=== PATIENT | female | born 1975 | race Caucasian/White ===

== ENCOUNTER 2018-04-17 17:57 | Emergency (ER) | payer MEDICAID ==
[~2018-04-17] VITALS: Ht 162.6 cm; Wt 50.0 kg
[~2018-04-17 17:57] MED LIST: LEVO100C2
[2018-04-17 19:09] LABS: INTERNATIONAL NORMALIZED RATIO 0.97 (0.93-1.1)
[2018-04-17 19:10] LABS: MEAN CORPUSCULAR HGB CONC 34.3 g/dL (32.4-35.8); MEAN PLATELET VOLUME 8.1 fL (7.4-10.4); PLATELET COUNT 138 x10^3/uL (130-400); RED BLOOD COUNT 3.92 x10^6/uL (3.82-5.3); RED CELL DISTRIBUTION WIDTH 13.3 % (9.6-15.2)
[2018-04-17 19:12] LABS: ALBUMIN 3.5 g/dL (3.4-5.0); ANION GAP 9 mmol/L (5-15); CALCIUM 8.2 mg/dL (8.5-10.1); CHLORIDE 105 mmol/L (98-107)
[2018-04-17 19:16] VITALS: BP 112/73
[2018-04-17 19:17] LABS: ALANINE AMINOTRANSFERASE 42 U/L (12-78); ALKALINE PHOSPHATASE 105 U/L (45-117); BILIRUBIN,TOTAL 0.3 mg/dL (0.2-1.0); CREATININE 0.86 mg/dL (0.55-1.02); TOTAL PROTEIN 8.4 g/dL (6.4-8.2); TROPONIN I < 0.015 ng/mL (0.000-0.045)
[2018-04-17 19:24] LABS: MD YES
[2018-04-17 19:30] LABS: BASOS#(MANUAL) 0.05 x10^3/uL (0-0.1); BASOS% (MANUAL) 1 % (0-1); EOS#(MANUAL) 0.05 x10^3/uL (0.0-0.4); EOS% (MANUAL) 1 % (1-7); LYMPH#(MANUAL) 1.82 x10^3/uL (1-3.4); LYMPHS% (MANUAL) 35 % (22-44); MONOS#(MANUAL) 0.42 x10^3/uL (0.3-2.7); MONOS% (MANUAL) 8 % (2-9); SEG#(MANUAL) 2.86 x10^3/uL (1.8-6.8); SEGS% (MANUAL) 55 % (42-75)
[2018-04-17 19:32] LABS: <PLATELET ESTIMATE> ADEQUATE; <PLT MORPHOLOGY> NORMAL PLT MORPH
== END 2018-04-17 20:25 | disposition home or self-care (01) ==
LOC: ED 20:20
DX: F10.220 Alcohol dependence with intoxication, uncomplicated (principal); K29.20 Alcoholic gastritis without bleeding; J44.9 Chronic obstructive pulmonary disease, unspecified; F17.290 Nicotine dependence, other tobacco product, uncomplicated; Z71.41 Alcohol abuse counseling and surveillance of alcoholic; Z79.899 Other long term (current) drug therapy
CPT/HCPCS: 36415; 70450; 71045; 80053; 80307; 84484; 85025; 85610; 85730; 93005; 99285; 99406

== ENCOUNTER 2018-12-12 20:29 | Emergency (ER) | payer MEDICAID ==
[~2018-12-12] VITALS: Ht 162.6 cm; Wt 57.0 kg
--- NOTE | 2018-12-12 20:30 | NUR ---
BIB [facility]. C/O nausea. +EtOH. Patient combative and uncooperative with exam. 4mg IV zofran and 12.5mg IV phenergan admin by [facility]. Placed on NIBP and pulse ox. Will continue to monitor.
--- NOTE | 2018-12-12 20:30 | NUR ---
Patient reports new diagnosis of thyroid cancer 2 weeks ago.
--- NOTE | 2018-12-12 21:33 | NUR ---
Resting in [facility]. RR = 16. No needs.
--- NOTE | 2018-12-12 21:50 | NUR ---
Report to Gina RN
[2018-12-12 21:57] LABS: MEAN CORPUSCULAR HEMOGLOBIN 34.3 pg (27.0-34.8); MEAN CORPUSCULAR HGB CONC 33.2 g/dL (32.4-35.8); MEAN CORPUSCULAR VOLUME 103.4 fL (80-100); MEAN PLATELET VOLUME 7.8 fL (7.4-10.4); PLATELET COUNT 161 x10^3/uL (130-400); RED CELL DISTRIBUTION WIDTH 15.3 % (9.6-15.2)
[2018-12-12 21:58] LABS: MD YES
--- NOTE | 2018-12-12 21:59 | NUR ---
PT RESTING CALMLY IN BED WITH EYES CLOSED. PT ON VITALS AND MAINTENANCE PLUMBER.
[2018-12-12 22:03] LABS: ALBUMIN 3.1 g/dL (3.4-5.0); ANION GAP 9 mmol/L (5-15); CALCIUM 7.2 mg/dL (8.5-10.1); CHLORIDE 109 mmol/L (98-107)
[2018-12-12 22:07] LABS: ALANINE AMINOTRANSFERASE 31 U/L (12-78); ALKALINE PHOSPHATASE 76 U/L (45-117); BILIRUBIN,TOTAL 0.2 mg/dL (0.2-1.0); CREATININE 0.67 mg/dL (0.55-1.02); TOTAL PROTEIN 7.1 g/dL (6.4-8.2)
[2018-12-12 22:08] LABS: ANISOCYTOSIS 1+; BAND#(MANUAL) 0.05 x10^3/uL; BANDS%(MANUAL) 1 % (0-7); LYMPHS% (MANUAL) 23 % (22-44); MONOS#(MANUAL) 0.21 x10^3/uL (0.3-2.7); MONOS% (MANUAL) 4 % (2-9); SEG#(MANUAL) 3.74 x10^3/uL (1.8-6.8); SEGS% (MANUAL) 72 % (42-75)
[2018-12-12 22:09] LABS: <PLATELET ESTIMATE> ADEQUATE; <PLT MORPHOLOGY> NORMAL PLT MORPH
--- NOTE | 2018-12-12 22:22 | NUR ---
PT CONTNIUES TO REST CALMLY IN BED, NO STATED NEEDS AT THIS TIME.
--- NOTE | 2018-12-12 23:46 | NUR ---
PT UNABLE TO AMBULATE AT THIS TIME. WILL CONTINUE TO MONITOR.
[2018-12-12 23:56] VITALS: BP 129/83
--- NOTE | 2018-12-13 00:01 | NUR ---
PT UNABLE TO STAND FOR TECH. THIS RN WENT TO AMBULATE PT, PT KICKING AND THRASHING AROUND IN [facility], STATED "JUST LET ME SLEEP, THE LAST NURSE JUST LET ME SLEEP". PT VSS, SEE CHARTED. IV REMOVED. PT STATED, "IF YOU MAKE ME STAND UP, I'LL JUST FALL OVER". PT IS A&OX4, STRENGTH IS STRONG X 4 EXTREMITIES. PT IS ABLE TO STAND HERSELF UP. PT REFUSING TO LEAVE. SECURITY CALLED TO ESCORT PT TO DC.
== END 2018-12-13 00:07 | disposition home or self-care (01) ==
LOC: ED 23:59
DX: F10.129 Alcohol abuse with intoxication, unspecified (principal); Z98.890 Other specified postprocedural states; Z87.11 Personal history of peptic ulcer disease; Y90.9 Presence of alcohol in blood, level not specified
CPT/HCPCS: 36415; 80053; 80307; 85025; 99283

== ENCOUNTER 2018-12-13 03:31 | Emergency (ER) | payer MEDICAID ==
[~2018-12-13] VITALS: Ht 160 cm; Wt 46.8 kg
--- NOTE | 2018-12-13 03:48 | NUR ---
RHONDA HODGE FROM THE STREET; PT. WAS FOUND BY A BYSTANDER SLEEPING IN THE STREET. UNABLE TO AMBULATE. D/C FROM HERE EARLIER TODAY FOR SAME. UPON ARRIVAL PT. VOMITING ON THE FLOOR. EMESIS BAG PROVIDED. DIFFICULT ASSESSMENT PT. NOT ANSWERING QUESTIONS APPROPRITELY. DR. HU AT BS TO EVAL PT.
[2018-12-13] MEDS ORDERED: ONDANSETRON 2MG/ML, 2ML IVPush ONE (04:00)
[2018-12-13] MEDS ORDERED: ONDANSETRON ODT 8 MG PO STA (04:12)
[2018-12-13] MEDS ORDERED: ONDANSETRON ODT 8 MG ONE (04:12)
--- NOTE | 2018-12-13 04:14 | NUR ---
PT. MEDICATED PER SEP. PT. CURLED UP IN POSITION RIGHT SIDE LYING. CONTINUOUS PULSE OX AND B/P MONITORS IN PLACE.
[2018-12-13 04:20] LABS: MEAN CORPUSCULAR HEMOGLOBIN 33.3 pg (27.0-34.8); MEAN CORPUSCULAR HGB CONC 32.4 g/dL (32.4-35.8); MEAN CORPUSCULAR VOLUME 102.7 fL (80-100); MEAN PLATELET VOLUME 7.6 fL (7.4-10.4); PLATELET COUNT 180 x10^3/uL (130-400); RED BLOOD COUNT 3.81 x10^6/uL (3.82-5.3); RED CELL DISTRIBUTION WIDTH 15.6 % (9.6-15.2)
[2018-12-13 04:29] LABS: ALANINE AMINOTRANSFERASE 32 U/L (12-78); ALBUMIN 3.4 g/dL (3.4-5.0); ANION GAP 8 mmol/L (5-15); CALCIUM 7.6 mg/dL (8.5-10.1); CHLORIDE 108 mmol/L (98-107); CREATININE 0.65 mg/dL (0.55-1.02)
[2018-12-13 04:34] LABS: ALKALINE PHOSPHATASE 83 U/L (45-117); BILIRUBIN,TOTAL 0.3 mg/dL (0.2-1.0); TOTAL PROTEIN 7.6 g/dL (6.4-8.2)
--- NOTE | 2018-12-13 04:49 | NUR ---
PT. RESTING ON [place] PT. KEEPS STATING "OH FUCK!" WHEN ASKED WHAT IS WRONG SHE REPORTS BEING COLD. AN EXTRA WARM BLANKET PROVIDED TO PT.
[2018-12-13 04:50] LABS: MD YES
[2018-12-13 04:52] LABS: <PLATELET ESTIMATE> ADEQUATE; <PLT MORPHOLOGY> NORMAL PLT MORPH; ANISOCYTOSIS 1+; LYMPH#(MANUAL) 0.95 x10^3/uL (1-3.4); LYMPHS% (MANUAL) 19 % (22-44); MONOS#(MANUAL) 0.25 x10^3/uL (0.3-2.7); MONOS% (MANUAL) 5 % (2-9); SEGS% (MANUAL) 76 % (42-75)
--- NOTE | 2018-12-13 05:45 | NUR ---
PT. CONTINUES TO DRY HEAVE; SMALL AMOUNT OF WATER CONSUMED AND PT. VOMITING THAT UP.
[2018-12-13] MEDS ORDERED: PROMETHAZINE 25 MG/ML, 1ML ONE (05:53)
[2018-12-13] MEDS ORDERED: PROMETHAZINE 25 MG/ML, 1ML IM ONE (06:00)
--- NOTE | 2018-12-13 06:15 | NUR ---
ATTEMPTED TO AMBULATE PT. TO BR ACROSS [place]. PT. UNABLE TO STAND ON HER OWN WITHOUT ALMOST FALLING OVER. PT. ASSISTED BACK TO [facility]. PT. STATES TO THIS RN "ALL YOU FUCKING PEOPLE WON'T LEAVE ME ALONE AND JUST LET ME TAKE A FUCKING NAP. I AM FUCKING TIRED DON'T YOU FUCKING GET IT." PT. CONTINUES TO DRY HEAVE; NO EMESIS NOTED. PULSE OX REPLACED. SAFETY MEASURES MAINTAINED.
--- NOTE | 2018-12-13 07:06 | NUR ---
REPORT TO SIVA CRABTREE.
[2018-12-13 09:01] VITALS: BP 112/72
--- NOTE | 2018-12-13 09:02 | NUR ---
received report from pop Aj laying on gujean carlos awake & calm, responds approp to staff, NAD, comfort measures provided, call light within reach.
[2018-12-13] MEDS ORDERED: METOCLOPRAMIDE 5 MG/ML, 2ML ONE (09:20)
[2018-12-13] MEDS ORDERED: METOCLOPRAMIDE 5 MG/ML, 2ML IM ONE (09:30)
--- NOTE | 2018-12-13 10:19 | NUR ---
PT GAIT SLOW AND STEADY, STATES, "I CANT WALK". SECURITY ASSISTED, CAB SLIP GIVEN. PT STATES, "I JUST NEED A COUPLE MORE HOURS TO SLEEP". EXPLAINED AT LENGTH, THAT SHE CAN SLEEP AT HOME, CAB SLIP GIVEN, PT ESCORTED BY SECURITY CAB SLIP GIVEN.
== END 2018-12-13 10:22 | disposition home or self-care (01) ==
LOC: ED 04:37
DX: R11.2 Nausea with vomiting, unspecified (principal); F15.10 Other stimulant abuse, uncomplicated; Z72.9 Problem related to lifestyle, unspecified; F17.200 Nicotine dependence, unspecified, uncomplicated
CPT/HCPCS: 36415; 80053; 83690; 84702; 85025; 96372; 99283; J2550; J2765; Q0162

== ENCOUNTER 2020-02-29 20:33 | Emergency (ER) | payer MEDICAID ==
[~2020-02-29] VITALS: Ht 172.7 cm; Wt 57.8 kg
[2020-02-29 20:43] VITALS: BP 119/78
[2020-02-29] MEDS ORDERED: DIPHENHYDRAMINE 25 MG CAPSULE PO ONE (22:30)
[2020-02-29] MEDS ORDERED: DIPHENHYDRAMINE 25 MG CAPSULE ONE (22:35)
== END 2020-02-29 22:45 | disposition home or self-care (01) ==
LOC: ED 22:19
DX: H10.232 Serous conjunctivitis, except viral, left eye (principal); M79.89 Other specified soft tissue disorders; J44.9 Chronic obstructive pulmonary disease, unspecified; Z86.39 Personal history of other endocrine, nutritional and metabolic disease; Z76.0 Encounter for issue of repeat prescription
CPT/HCPCS: 99283; J7512; Q0163

== ENCOUNTER 2020-05-31 01:23 | Emergency (ER) | payer MEDICAID ==
[~2020-05-31] VITALS: Ht 160 cm; Wt 56.4 kg
[2020-05-31 01:31] VITALS: BP 105/60
--- NOTE | 2020-05-31 01:57 | NUR ---
REPORT GIVEN TO SIVA WILKINS.
[2020-05-31] MEDS ORDERED: MAALOX/HYOSCYAMINE/LIDOCAINE 45 ML BTL PO ONE (02:00)
--- NOTE | 2020-05-31 02:07 | NUR ---
BREAK RN: PHARMACY CALLED FOR GI COCKTAIL. NONE IN [place].
--- NOTE | 2020-05-31 02:08 | NUR ---
BREAK RN: PT TO XRAY
[2020-05-31] MEDS ORDERED: MAALOX/HYOSCYAMINE/LIDOCAINE 45 ML BTL ONE (02:28)
--- NOTE | 2020-05-31 03:32 | NUR ---
Patient/Caregiver given discharge instructions and they have confirmed that they understand the instructions. Patient ambulatory with steady gait.
== END 2020-05-31 03:34 | disposition home or self-care (01) ==
LOC: ED 03:10
DX: K21.9 Gastro-esophageal reflux disease without esophagitis (principal); F10.120 Alcohol abuse with intoxication, uncomplicated; R07.0 Pain in throat; R10.9 Unspecified abdominal pain; Z86.39 Personal history of other endocrine, nutritional and metabolic disease; Y90.0 Blood alcohol level of less than 20 mg/100 ml
CPT/HCPCS: 70360; 99283

== ENCOUNTER 2020-06-05 09:40 | Emergency (ER) | payer MEDICAID ==
[~2020-06-05] VITALS: Ht 160 cm; Wt 56.1 kg
--- NOTE | 2020-06-05 10:46 | NUR ---
PT C/O LT THUMB PAIN & WRIST. STATES FINGERS"GOT BENT BACK A FEW MONTHS AGO, BUT IT'S BEEN GOING ON FOR A YEAR". RT HANDED. LIMITED ROM 1ST JOINTS LT HAND. IBUPROFEN LEAD PRESSER FOR PAIN
[2020-06-05] MEDS ORDERED: SERT-237 PO (10:50)
[2020-06-05] MEDS ORDERED: GABA-826 PO (10:50)
[2020-06-05] MEDS ORDERED: OMEP20TA62 PO (10:50)
--- NOTE | 2020-06-05 11:26 | NUR ---
PAWAN AT BS FOR SPLINTING
[2020-06-05 11:46] VITALS: BP 111/71
== END 2020-06-05 11:48 | disposition home or self-care (01) ==
LOC: ED 09:55
DX: G89.11 Acute pain due to trauma (principal); M25.532 Pain in left wrist; M79.642 Pain in left hand; X58.XXXA Exposure to other specified factors, initial encounter; Y93.89 Activity, other specified; Y92.89 Other specified places as the place of occurrence of the external cause; Y99.8 Other external cause status
CPT/HCPCS: 29125; 99284

== ENCOUNTER 2020-06-21 17:10 | Emergency (ER) | payer MEDICAID ==
[~2020-06-21 17:10] MED LIST changes: +GABA-826 PO; +OMEP20TA62 PO; +SERT-237 PO
--- NOTE | 2020-06-21 19:20 | NUR ---
PT TO RM FROM LOBBY
[2020-06-21] MEDS ORDERED: MAALOX/HYOSCYAMINE/LIDOCAINE 45 ML BTL PO ONE (20:30)
[2020-06-21] MEDS ORDERED: MAALOX/HYOSCYAMINE/LIDOCAINE 45 ML BTL ONE (20:37)
--- NOTE | 2020-06-21 20:46 | NUR ---
Break RN: medicated patient per mar.
[2020-06-21 21:20] LABS: BASOPHILS % (AUTO) 1 % (0-1); EOSINOPHILS % (AUTO) 1 % (1-7); LYMPHOCYTES % (AUTO) 43 % (22-44); MEAN CORPUSCULAR HEMOGLOBIN 33.3 pg (27.0-34.8); MEAN CORPUSCULAR HGB CONC 34.1 g/dL (32.4-35.8); MEAN PLATELET VOLUME 7.7 fL (7.4-10.4); MONOCYTES % (AUTO) 6 % (2-9); NEUTROPHILS % (AUTO) 49 % (42-75); PLATELET COUNT 191 x10^3/uL (130-400); RED BLOOD COUNT 4.13 x10^6/uL (3.82-5.3); RED CELL DISTRIBUTION WIDTH 13.4 % (9.6-15.2)
[2020-06-21 21:22] LABS: ALBUMIN 3.1 g/dL (3.4-5.0); ANION GAP 6 mmol/L (5-15); CALCIUM 8.2 mg/dL (8.5-10.1); CHLORIDE 105 mmol/L (98-107)
[2020-06-21 21:28] LABS: ALANINE AMINOTRANSFERASE 20 U/L (12-78); ALKALINE PHOSPHATASE 118 U/L (45-117); BILIRUBIN,TOTAL 0.3 mg/dL (0.2-1.0); CREATININE 0.68 mg/dL (0.55-1.02); TOTAL PROTEIN 7.5 g/dL (6.4-8.2)
[2020-06-21 21:34] LABS: MD NO
--- NOTE | 2020-06-21 21:42 | NUR ---
ALL RESULTS ARE BACK AT THIS TIME. CHART UP FOR RECHECK.
[2020-06-21 22:53] VITALS: BP 125/66
== END 2020-06-21 22:55 | disposition home or self-care (01) ==
LOC: ED 17:40
DX: R13.12 Dysphagia, oropharyngeal phase (principal); R13.13 Dysphagia, pharyngeal phase; R11.2 Nausea with vomiting, unspecified; J02.9 Acute pharyngitis, unspecified; R05 Cough; R10.9 Unspecified abdominal pain; K21.9 Gastro-esophageal reflux disease without esophagitis; J44.9 Chronic obstructive pulmonary disease, unspecified; F17.210 Nicotine dependence, cigarettes, uncomplicated; Z86.39 Personal history of other endocrine, nutritional and metabolic disease
CPT/HCPCS: 36415; 70360; 71045; 80053; 80320; 85025; 99284; 99406; G0480